=== PATIENT | male | born 1960 | race Caucasian/White ===

== ENCOUNTER 2017-06-11 10:27 | Emergency (ER) | payer BC ==
[2017-06-11 11:14] VITALS: BP 156/93
--- NOTE | 2017-06-11 11:44 | UC ---
Throat Pain/Nasal David HPI - HPI Summary HPI Summary: Sore throat and hard to swallow for 9 days - History of Current Complaint Chief Complaint: UCRespiratory Stated Complaint: SORE THROAT Time Seen by Provider: 06/11/17 11:35 Hx Obtained From: Patient Onset/Duration: Sudden Onset, Lasting Days Severity: Moderate Associated Signs & Symptoms: Positive: Dysphagia - Allergies/Home Medications Allergies/Adverse Reactions: Allergies Allergy/AdvReac Type Severity Reaction Status Date / Time HAYFEVER/ENVIRONMENTAL Allergy Congestion Uncoded 06/11/17 11:14 Home Medications: Home Medications Benazepril HCl [Lotensin] 10 mg PO QAM 06/11/17 [History Confirmed 06/11/17] Loratadine [Claritin 10 MG CAP] 10 mg PO DAILY PRN 06/11/17 [History Confirmed 06/11/17] PMH/Surg Hx/FS Hx/Imm Hx Previously Healthy: Yes - Surgical History Surgical History: Yes Surgery Procedure, Year, and Place: 2008 RIGHT KNEE ARTHROSCOPIC SURGERY, [place]. RIGHT LEG FRACTURE WITH SURGERY, [facility] ( WHILE IN HIS 20'S); left knee scope and scraping. RIGHT ELBOW OPEN REDUCTION INTERNAL FIXATION, WHILE IN HIGH SCHOOL), [facility]; left ulnar nerve. EYE SURGERY A CHILD, [place] - Family History Known Family History: Positive: Hypertension - Social History Alcohol Use: Occasionally Substance Use Type: None Smoking Status (MU): Former Smoker When Did the Patient Quit Smoking/Using Tobacco: Review of Systems Constitutional: Negative Skin: Negative Eyes: Negative ENT: Sore Throat Respiratory: Negative Cardiovascular: Negative Gastrointestinal: Negative Genitourinary: Negative Motor: Negative Neurovascular: Negative Musculoskeletal: Negative Neurological: Negative Psychological: Negative All Other Systems Reviewed And Are Negative: Yes Physical Exam Triage Information Reviewed: Yes Appearance: Well-Appearing, Well-Nourished, Pain Distress Vital Signs: Initial Vital Signs Temp 98.5 F 06/11/17 11:04 Pulse 80 06/11/17 11:04 Resp 20 06/11/17 11:04 BP 156/93 06/11/17 11:04 Vital Signs Reviewed: Yes Eye Exam: Normal ENT: Positive: Pharyngeal erythema - with ulcerations noted, TM red, Tonsillar swelling Dental Exam: Normal Neck exam: Normal Neck: Positive: Supple, Nontender, Enlarged Nodes @ - bilateral cervical Respiratory Exam: Normal Respiratory: Positive: Chest non-tender, Lungs clear, Normal breath sounds Cardiovascular Exam: Normal Cardiovascular: Positive: RRR, No Murmur, Pulses Normal Abdominal Exam: Normal Abdomen Description: Positive: Nontender, No Organomegaly, Soft Bowel Sounds: Positive: Present Musculoskeletal Exam: Normal Neurological Exam: Normal Psychological Exam: Normal Skin Exam: Normal Throat Pain/Nasal Course/Dx - Course Course Of Treatment: hx obtained, exam performed ,meds reviewed, treated for viral pharyngitis. and throat ulcerations - Differential Dx/Diagnosis Differential Diagnosis/HQI/PQRI: Pharyngitis, Sinusitis, URI Provider Diagnoses: pharyngitis. mouth ulcers Discharge - Discharge Plan Condition: Stable Disposition: HOME Patient Education Materials: Pharyngitis (ED) Additional Instructions: 1. Increase your fluid intake and get plenty of rest 2. take the medication as prescribed.
== END 2017-06-11 11:57 | disposition home or self-care (01) ==
LOC: UCCORT 10:27
DX: J02.9 Acute pharyngitis, unspecified (principal); K12.1 Other forms of stomatitis; J30.1 Allergic rhinitis due to pollen; Z87.891 Personal history of nicotine dependence
CPT/HCPCS: 99202; G0463

== ENCOUNTER 2018-08-23 13:31 | Emergency (ER) | payer SELFPAY ==
[2018-08-23 13:49] VITALS: BP 184/105
--- NOTE | 2018-08-23 14:31 | ED ---
Throat Pain/Nasal Congestion - HPI Summary HPI Summary: 58 yr old male with the complaint of got some paint thinner in the left nostril. He was using pain thinner in a squirt bottle to clean up some brushes and he accidentally got some in his left side of the nose. He has no hoarse voice, no SOB, no coughing. He rinsed his nose with water and he feels better. This happened this afternoon. This happened at his home. - History of Current Complaint Chief Complaint: UCRespiratory Time Seen by Provider: 08/23/18 14:06 - Allergies/Home Medications Allergies/Adverse Reactions: Allergies Allergy/AdvReac Type Severity Reaction Status Date / Time HAYFEVER/ENVIRONMENTAL Allergy Congestion Uncoded 08/23/18 13:42 Home Medications: Home Medications Benazepril HCl 1 tab DAILY 08/23/18 [History Confirmed 08/23/18] PMH/Surg Hx/FS Hx/Imm Hx Cardiovascular History: Reports: Hx Hypertension - ON MEDICATION Comment Only: Other Cardiovascular Problems/Disorders - SCHEDULE FOR EKG ON 06/01/2012, STATES SOME TIME OF SKIP IN HEARTBEAT Musculoskeletal History: Reports: Hx Arthritis - LEFT ARM, RIGHT KNEE Sensory History: Denies: Hx Contacts or Glasses, Hx Hearing Aid Opthamlomology History: Denies: Hx Contacts or Glasses Psychiatric History: Reports: Hx Anxiety - NO MEDICATION - Surgical History Surgery Procedure, Year, and Place: 2008 RIGHT KNEE ARTHROSCOPIC SURGERY, [place]. RIGHT LEG FRACTURE WITH SURGERY, [facility] ( WHILE IN HIS 20'S); left knee scope and scraping. RIGHT ELBOW OPEN REDUCTION INTERNAL FIXATION, WHILE IN HIGH SCHOOL), [facility]; left ulnar nerve. EYE SURGERY A CHILD, [place] Hx Anesthesia Reactions: Yes - DROWSY/GROGGY NEXT DAY AFTER KNEE SURGERY Infectious Disease History: No Infectious Disease History: Denies: Traveled Outside the [place] in Last 30 Days - Family History Known Family History: Positive: Hypertension - Social History Occupation: Employed Full-time Alcohol Use: Occasionally Substance Use Type: Reports: None Smoking Status (MU): Former Smoker Review of Systems Constitutional: Negative Positive: Other - paint thinner in nose All Other Systems Reviewed And Are Negative: Yes Physical Exam Triage Information Reviewed: Yes Vital Signs On Initial Exam: Initial Vitals Temp Pulse Resp BP Pulse Ox 97.8 F 74 16 184/105 100 08/23/18 13:42 08/23/18 13:42 08/23/18 13:42 08/23/18 13:42 08/23/18 13:42 Vital Signs Reviewed: Yes Appearance: Positive: Well-Appearing, No Pain Distress Skin: Positive: Warm, Skin Color Reflects Adequate Perfusion Head/Face: Positive: Normal Head/Face Inspection Eyes: Positive: EOMI ENT: Positive: TMs normal, Other - nose without erythema. Voice is clear, no stridor. Nasal Ph checked bilateral and it is 7.. Negative: Nasal congestion, Nasal drainage Respiratory/Lung Sounds: Positive: Clear to Auscultation, Breath Sounds Present Cardiovascular: Positive: RRR. Negative: Murmur Abdomen Description: Negative: Distended Musculoskeletal: Positive: Normal, Strength/ROM Intact Neurological: Positive: Sensory/Motor Intact, Alert, Oriented to Person Place, Time, CN Intact II-III Psychiatric: Positive: Normal - Agustín Coma Scale Best Eye Response: 4 - Spontaneous Best Motor Response: 6 - Obeys Commands Best Verbal Response: 5 - Oriented Coma Scale Total: 15 Diagnostics - Vital Signs Vital Signs Temp Pulse Resp BP Pulse Ox 08/23/18 13:42 97.8 F 74 16 184/105 100 - Laboratory Lab Statement: Any lab studies that have been ordered have been reviewed, and results considered in the medical decision making process. EENT Course/Dx - Course Course Of Treatment: 58 yr male with paint thinner exposure. Poison center contacted and nothing further to do. Ph normal, and he is asymptomatic. DC home. - Diagnoses Provider Diagnoses: Exposure to chemical compounds, Hypertension Discharge - Sign-Out/Discharge Documenting (check all that apply): Patient Departure All imaging exams completed and their final reports reviewed: No Studies - Discharge Plan Condition: Good Disposition: HOME Patient Education Materials: Chemical Skin Burn (ED), Hypertension (ED) Referrals: Luis Najera MD [Primary Care Provider] - 2 Days - Billing Disposition and Condition Condition: GOOD Disposition: Home
== END 2018-08-23 14:51 | disposition home or self-care (01) ==
LOC: UCCORT 13:31
DX: R05 Cough (principal); J98.01 Acute bronchospasm; Z88.8 Allergy status to other drugs, medicaments and biological substances; Z88.5 Allergy status to narcotic agent
CPT/HCPCS: 99211; G0463

== ENCOUNTER 2020-08-21 14:37 | Observation (INO) ==
[2020-08-21] MEDS ORDERED: Morphine 4 MG/ML VIAL (1 ml) IV ONE ×2 (14:58→16:34)
[2020-08-21] MEDS ORDERED: NS 0.9% 1000 ml BAG 1,000 ML IV ONE (14:58)
[2020-08-21 15:25] LABS: ABS Lymphocytes 0.5 10^3/ul (1.0-4.8); ABS Monocytes 0.3 10^3/ul (0-0.8); ABS Neutrophils 6.9 10^3/ul (1.5-7.7); Eosinophil % 0.1 %; Hematocrit 43 % (42-52); Hemoglobin 15.1 g/dL (14.0-18.0); Lymphocyte % 6.7 %; Mean Corpuscular HGB Conc 35 g/dL (31-36); Mean Corpuscular Hemoglobin 32 pg (27-31); Mean Corpuscular Volume 91 fL (80-94); Mean Platelet Volume 8.1 fL (7.4-10.4); Platelet Count 266 10^3/uL (150-450); Red Blood Count 4.78 10^6 /uL (4.18-5.48); Red Cell Distribution Width 13 % (10-15); White Blood Count 7.8 10^3/uL (3.5-10.8)
[2020-08-21 15:45] LABS: Anion Gap 8 mmol/L (2-11); BUN/Creatinine Ratio 15.9 (8-20); Blood Urea Nitrogen 13 mg/dL (6-24); C Reactive Protein < 1.00 mg/L (<8.01); CO2 Carbon Dioxide 23 mmol/L (22-32); Calcium 10.1 mg/dL (8.6-10.3); Chloride 102 mmol/L (101-111); EGFR African American 115.6 (>60); EGFR Non-African American 95.5 (>60); Glucose 113 mg/dL (70-100); Potassium 3.9 mmol/L (3.5-5.0); Sodium 133 mmol/L (135-145)
[2020-08-21 16:28] LABS: Erythrocyte Sed Rate 8 mm/Hr (0-19)
[2020-08-21] MEDS ORDERED: Labetalol IV 5 MG/ML 20 ml VIAL IV PUSH ONE (16:34)
[2020-08-21] MEDS ORDERED: hydrALAZINE 20 mg/ml 1 ML Vial IV IV SLOW PU ONE (16:52)
[2020-08-21] MEDS ORDERED: Ondansetron 4 mg VIAL 2 MG/ML 2 ml VIAL IV PRN (19:24)
[2020-08-21] MEDS ORDERED: hydrALAZINE 20 mg/ml 1 ML Vial IV IV SLOW PU PRN (19:28)
[2020-08-22] MEDS: Morphine 2 MG/ML SYRINGE IV PRN ×2 (00:33→04:52)
[2020-08-22 11:21] VITALS: BP 149/69
[2020-08-23] MEDS ORDERED: Influenza VAC *QUAD* 2020-21* 0.5 ML SYRINGE IM ONE (09:00)
== END 2020-08-22 13:05 | disposition home or self-care (01) ==
LOC: ED 14:37 → SSU 14:37
PROVIDERS: ADMIT Pediatrics; ATTEND Pediatrics